=== PATIENT | male | born 1970 | race Caucasian/White ===

== ENCOUNTER 2024-04-14 02:19 | Emergency (ER) | payer OTHER, SELFPAY ==
--- NOTE | ~2024-04-14 | CT_ITS ---
Non-contrast Head CT History: Head injury Technique: Axial non-contrast imaging of the brain was performed. Dose reduction technique was used on this scan by utilizing automated exposure control and iterative reconstruction technique. The dose -length product (DLP) was 756.67 mGy-cm. Findings: There is no evidence of intracranial hemorrhage, mass lesion, or acute infarct. Brain par enchyma appears normal. The ventricles and subarachnoid spaces are normal in size. The calvarium ap pears normal. The visualized paranasal sinuses and mastoid air cells are clear. Mild soft tissue swe lling/hematoma noted in the left parietal scalp. Impression: No intracranial abnormality seen. Mild soft tissue swelling/hematoma in the left parietal scalp. Reviewed, dictated and finalized at [facility]. GER ENROLLMENT Impression: No intracranial abnormality seen. Mild soft tissue swelling/hematoma in the left parietal scalp.
[2024-04-14 02:19] VITALS: BP 165/100; PULSE 120; RESP 20; TEMP 37.6; O2SAT 95
[2024-04-14 02:24] VITALS: BP 165/100; PULSE 121; RESP 21; O2SAT 97
--- NOTE | 2024-04-14 02:24 | ECG_ITS ---
Test Date: 2024-04-14 02:26:50 Measurements Intervals [place] Rate: 121 P: 50 CA: 184 QRS: 49 QRSD: 112 T: 44 QT: 315 QTc: 448 Interpretive Statements SINUS TACHYCARDIA MODERATE INTRAVENTRICULAR CONDUCTION DELAY [110+ ms QRS DURATION] ST ELEVATION, PROBABLY EARLY REPOLARIZATION [ST ELEVATION WITH NORMALLY INFLECTED T WAVE] ABNORMAL RHYTHM ECG No previous ECG available for comparison Electronically Signed On 04-14-2024 12:52:04 [employer] by Kamaljit Pinedo M.D.
[2024-04-14 02:26] VITALS: PULSE 120; O2SAT 99
[2024-04-14 02:31] VITALS: BP 161/98; PULSE 124; RESP 22; RESP 23; O2SAT 97
[2024-04-14] MEDS: SODIUM CHLORIDE 0.9% IV 2,000 ML 999 ML IV CONT (02:53)
[2024-04-14 03:06] VITALS: BP 130/106; PULSE 118; RESP 23; O2SAT 99
[2024-04-14 03:06] LABS: Basophils Absolute Auto 0.1 K/mm3 (0.0-0.1); Basophils Percent Auto 0.6 % (0.2-1.2); Eosinophils Percent Auto 0.1 % (0-4.4); Hematocrit 47.6 % (42.0-52.0); Hemoglobin 15.9 g/dL (14.0-18.0); Immature Granulocyte Absolute 0.07 K/mm3 (0.00-0.031); Immature Granulocyte Percent A 0.4 % (0-0.5); Lymphocytes Absolute Auto 1.37 K/mm3 (0.9-3.2); Lymphocytes Percent Auto 7.2 % (18.3-44.2); Mean Corpuscular HGB Conc 33.4 g/dl (32-36); Mean Corpuscular Hemoglobin 30.8 pg (26-34); Mean Corpuscular Volume 92.2 fl (80-100); Mean Platelet Volume 9.5 fl (7.4-10.4); Monocytes Absolute Auto 0.9 K/mm3 (0.1-0.6); Monocytes Percent Auto 4.6 % (2.6-8.5); Neutrophils Absolute Auto 16.6 K/mm3 (1.3-6.7); Neutrophils Percent Auto 87.1 % (45.5-73.1); Platelet Count Result 429 k/mm3 (150-375); Red Blood Count 5.16 M/mm3 (4.6-6.20); White Blood Count 19.1 K/mm3 (4.5-10.0)
[2024-04-14 03:09] LABS: Add Urine Microscopic? NO; Appearance Urine Clear (Clear); Bilirubin Urine Negative (Negative); Blood Urine Negative (Negative); Color Urine Yellow (Yellow); Glucose Urine UA Negative (Negative); Ketones Urine Negative (Negative); Leukocyte Esterase Ur Negative LEU/UL (Negative); Nitrate Urine Negative (Negative); Protein Urine Negative (Negative); Specific Grav Ur 1.014 (1.001-1.035); Urobilinogen Urine 0.2 mg/dL (<2.0)
[2024-04-14 03:16] LABS: Ethanol < 10 mg/dL (<10)
[2024-04-14 03:17] LABS: Alanine Aminotransferase 36 U/L (6-50); Albumin Level 4.3 g/dL (3.5-5.1); Alkaline Phosphatase 82 U/L (38-126); Anion Gap 8 mmol/L (4-12); Aspartate Amino Transferase 40 U/L (17-59); Bilirubin,Total 0.6 mg/dL (0.2-1.3); Blood Urea Nitrogen 14 mg/dL (9-20); Calcium 8.9 mg/dL (8.4-10.2); Carbon Dioxide 28 mmol/L (22-30); Chloride 104 mmol/L (98-107); Estimated CRCL calculation 58 ml/min; Estimated Glomerular Filt Rate 58; Glucose 119 mg/dL (65-110); Potassium 4.2 mmol/L (3.4-5.0); Sodium 140 mmol/L (137-145)
[2024-04-14 03:18] LABS: INR 0.9; Prothrombin Time 12.6 Seconds (11.1-14.7)
[2024-04-14 03:19] LABS: Partial Thromboplastin Time 24.7 Seconds (22.3-36.8)
[2024-04-14 03:24] LABS: Amphetamine Screen Urine Negative (Negative); Barbiturate Screen Urine Negative (Negative); Benzodiazepines Screen Urine Positive (Negative); Cannabinoid Screen Urine Negative (Negative); Cocaine Screen Urine Negative (Negative); Methadone Screen Urine Negative (Negative); Opiate Screen Urine Negative (Negative); Phencyclidine Screen Urine Negative (Negative)
--- NOTE | 2024-04-14 03:59 | PC.NURSE ---
patient admits to coming into 3kilos of kratum . pt states he normally puts his kratum into a protein shake to help with pain control . pt unsure how much he puts into his protein shakes. edp dr. jerry recommended posion control consult. posion control states that Kratum is a street drug and care is symptomatic/ unpredictable and unregulated. poison control states in smaller doses it s used as a stimulate but larger doses have an opiate effect but does respond to narcan . posion control states that onset is 5-10 minutes and lasts roughly 2-5 hours depending on how much the patient took.
--- NOTE | 2024-04-14 04:08 | ED_ITS ---
HPI - General Adult General Chief complaint: Altered Mental Status Stated complaint: Confusion Time Seen by Provider: 04/14/24 02:27 History of Present Illness HPI narrative: This is a 54-year-old presenting ED for altered mental status. A family noticed that he was confused, very talkative, with a tremor. EMS was called. He was then brought to the ED for evaluation. At this time the patient has no complaints. He admits to taking kratom. he is denying fevers chills chest pain difficulty breathing abdominal pain hallucinations, SI or HI. Related Data Allergies Allergy/AdvReac Type Severity Reaction Status Date / Time No Known Allergies Allergy Unverified 01/11/17 12:50 Exam Narrative: APPEARANCE: patient appears anxious Head: atraumatic. EYES: Pupils 4 mm NOSE: Atraumatic NECK: Trachea midline RESPIRATORY: No increased rate of breathing clear to auscultation CARDIOVASCULAR: tachycardic ABDOMINAL: Non-distended soft nontender MUSCULOSKELETAl: No obvious deformities NEURO: Alert. Moving 4/4 extremities SKIN:: Warm, dry. Normal color PSYCHIATRIC: Normal affect Course Vital Signs Vital signs: Vital Signs Temperature 99.7 F H 04/14/24 02:19 Pulse Rate 120 H 04/14/24 02:19 Respiratory Rate 20 04/14/24 02:19 Blood Pressure 165/100 H 04/14/24 02:19 Pulse Oximetry 95 04/14/24 02:19 Oxygen Delivery Room Air 04/14/24 02:19 Temperature 99.7 F H 04/14/24 02:19 Pulse Rate 118 H 04/14/24 03:06 Respiratory Rate 23 H 04/14/24 03:06 Blood Pressure 130/106 H 04/14/24 03:06 Pulse Oximetry 99 04/14/24 03:06 Oxygen Delivery Room Air 04/14/24 02:26 Medical Decision Making MDM Narrative Medical decision making narrative: -Course: 54-year-old male presenting for altered mental status. Patient has a sympathomimetic toxidrome. Urine drug screen positive for benzos which the patient admits to taking. After monitored for several hours he finally admitted to taking kratom. Poison Control was contacted. the patient is requesting discharge. He has family members with him. He is not overtly psychotic and can hold a lucid conversation although he is very talkative. They will return if anything changes. Discharged -DDX includes but is not limited to: substance use disorder, cocaine, meth, Kratom -Independent interpretation of studies: labs and imaging reviewed. CT head unremarkable Vital Signs Vital Signs: Vital Signs Temperature 99.7 F H 04/14/24 02:19 Pulse Rate 120 H 04/14/24 02:19 Respiratory Rate 20 04/14/24 02:19 Blood Pressure 165/100 H 04/14/24 02:19 Pulse Oximetry 95 04/14/24 02:19 Oxygen Delivery Room Air 04/14/24 02:19 Temperature 99.7 F H 04/14/24 02:19 Pulse Rate 118 H 04/14/24 03:06 Respiratory Rate 23 H 04/14/24 03:06 Blood Pressure 130/106 H 04/14/24 03:06 Pulse Oximetry 99 04/14/24 03:06 Oxygen Delivery Room Air 04/14/24 02:26 Lab Data 04/14/24 02:52 04/14/24 02:52 Labs: Lab Results 04/14/24 Range/Units 02:52 WBC 19.1 H (4.5-10.0) K/mm3 RBC 5.16 (4.6-6.20) M/mm3 Hgb 15.9 (14.0-18.0) g/dL Hct 47.6 (42.0-52.0) % MCV 92.2 (80-100) fl MCH 30.8 (26-34) pg MCHC 33.4 (32-36) g/dl RDW 14.0 (11.5-14.5) % Plt Count 429 H (150-375) k/mm3 MPV 9.5 (7.4-10.4) fl Immature Gran % (Auto) 0.4 (0-0.5) % Neut % (Auto) 87.1 H (45.5-73.1) % Lymph % (Auto) 7.2 L (18.3-44.2) % [place] % (Auto) 4.6 (2.6-8.5) % Eos % (Auto) 0.1 (0-4.4) % Baso % (Auto) 0.6 (0.2-1.2) % Lymph # (Auto) 1.37 (0.9-3.2) K/mm3 [place] # (Auto) 0.9 H (0.1-0.6) K/mm3 Eos # (Auto) 0.0 (0-0.3) K/mm3 Baso # (Auto) 0.1 (0.0-0.1) K/mm3 Abs Immat Gran (auto) 0.07 H (0.00-0.031) K/mm3 Absolute Neuts (auto) 16.6 H (1.3-6.7) K/mm3 Absolute Nucleated RBC 0.000 (0.0-0.012) K/mm3 Nucleated RBC % 0.0 (0.0-0.2) % PT 12.6 (11.1-14.7) Seconds INR 0.9 APTT 24.7 (22.3-36.8) Seconds Sodium 140 (137-145) mmol/L Potassium 4.2 (3.4-5.0) mmol/L Chloride 104 (98-107) mmol/L Carbon Dioxide 28 (22-30) mmol/L Anion Gap 8 (4-12) mmol/L BUN 14 (9-20) mg/dL Creatinine 1.30 (0.7-1.3) mg/dL Estim Creat Clear Calc 58 ml/min Estimated GFR 58 L (59 - ) Glucose 119 H (65-110) mg/dL Calcium 8.9 (8.4-10.2) mg/dL Total Bilirubin 0.6 (0.2-1.3) mg/dL AST 40 (17-59) U/L ALT 36 (6-50) U/L Alkaline Phosphatase 82 (38-126) U/L Total Protein 7.0 (6.3-8.2) g/dL Albumin 4.3 (3.5-5.1) g/dL TSH (Reflex) 1.360 (0.465-4.68) uIU/mL Urine Color Yellow (Yellow) Urine Appearance Clear (Clear) Urine pH 7.0 (5.0-9.0) Ur Specific [place] 1.014 (1.001-1.035) Urine Protein Negative (Negative) mg/dL Urine Glucose (UA) Negative (Negative) mg/dL Urine Ketones Negative (Negative) mg/dL Ur Blood (Man) Negative (Negative) Urine Nitrate Negative (Negative) Urine Bilirubin Negative (Negative) Urine Urobilinogen 0.2 (<2.0) mg/dL Leukocyte Esterase Rfl Negative (Negative) HAIR/UL Urine Opiates Screen Negative (Negative) Urine Methadone Screen Negative (Negative) Ur Barbiturates Screen Negative (Negative) Ur Phencyclidine Scrn Negative (Negative) Ur Amphetamine Screen Negative (Negative) U Benzodiazepines Scrn Positive A (Negative) Urine Cocaine Screen Negative (Negative) U Cannabinoids Screen Negative (Negative) Ethyl Alcohol < 10 (<10) mg/dL Discharge Plan Discharge Clinical Impression: Drug use disorder Patient Disposition: Home, Self-Care Condition: Stable Instructions: Antibiotic Form, Polysubstance Use Disorder (ED) Additional Instructions: Please be careful when using kratom. This drug is not monitored by the FDA and can have varying effects. If you need help you can always return to the ED for re-evaluation. Follow-up/Referrals: UNKNOWN,DOCTOR [Primary Care Provider] -
--- NOTE | 2024-04-14 04:10 | PC.NURSE ---
pt removed iv access. fluids infused at this time. iv catheter intact at bedside of patient bed.
== END 2024-04-14 04:30 | disposition home or self-care (01) ==
PROVIDERS: Emergency Provider Emergency Medicine
DX: F13.90 Sedative, hypnotic, or anxiolytic use, unspecified, uncomplicated (principal); R00.0 Tachycardia, unspecified; I45.9 Conduction disorder, unspecified
CPT/HCPCS: 36415; 70450; 80053; 80307; 81003; 82077; 84443; 85025; 85610; 85730; 93005; 96360; 99284; J7030